=== PATIENT | male | born 1945 | race Caucasian/White ===

== ENCOUNTER 2020-10-08 14:49 | Inpatient (IN) | payer OTHER ==
[~2020-10-08] VITALS: Ht 175.3 cm; Wt 70.8 kg
--- NOTE | ~2020-10-08 | HC ---
[facility] [place] [address] CONSULTATION Name: HREB SORIANO Room #: 464-P [facility] IN M.R.#: [id number] Admission: 10/08/20 Attend Phys: Aaron Elkins MD Discharge: 10/11/20 Date of : 45 Report #: [id number] THIS REPORT FOR: cc: Eduardo Harry MD, Paul Piezas MD Althoff,Mic Sharpe MD ~ DOC #: [id number] Mic Manuel MD DATE OF SERVICE: 10/09/2020 CHIEF COMPLAINT: Diabetic foot ulceration. HISTORY OF PRESENT ILLNESS: This is a 75-year-old male patient who is admitted to the hospital with a history of diabetes mellitus and progressive infection involving his right foot. He had previously refused hospitalization at the recommendation of Dr. Seo in the wound clinic, but was feeling increasingly ill and decided to present. He had noticed some increased bleeding from the wound as well as just generalized fatigue and is here for further evaluation and treatment. The patient has had recurring issues and poor healing involving that foot. PAST MEDICAL HISTORY: Positive for history of anemia, type 2 diabetes mellitus, Charcot foot involving the right foot, coronary artery disease status post CABG, peripheral arterial disease, moderate protein calorie malnutrition. PAST SURGICAL HISTORY: He is status post left below-knee amputation. MEDICATIONS: Includes hydrocodone, ondansetron, Desyrel, Xanax, nitroglycerin, Lasix, alprazolam, metoprolol. ALLERGIES: No known drug allergies. SOCIAL HISTORY: Negative for alcohol or tobacco use. FAMILY HISTORY: Noncontributory. REVIEW OF SYSTEMS: CONSTITUTIONAL: The patient denies fever, chills or weight loss. NEUROLOGICAL: The patient denies focal weakness. Does have a peripheral neuropathy. EYES: The patient denies visual changes, redness or drainage. ENT: The patient denies earache, nasal drainage, sore throat. CARDIOVASCULAR: The patient denies chest pain, palpitations, diaphoresis. PULMONARY: No shortness of breath. GASTROINTESTINAL: No nausea, vomiting or diarrhea or abdominal pain. ORTHOPEDIC: The patient complains of some drainage and redness, some discomfort [facility] [address] [address] CONSULTATION Name: HERB SORIANO Room #: 464-P [facility] IN .R.#: [id number] Admission: 10/08/20 Attend Phys: Aaron Elkins MD Discharge: 10/11/20 Date of : 45 Report #: [id number] involving his right foot. Others systems in a 14-point review of systems are negative. PHYSICAL EXAMINATION: VITAL SIGNS: Include temperature 97.8, pulse 85, respiratory rate of 16, blood pressure 117/51. GENERAL: This is a chronically ill-appearing male patient, appears to be in mild discomfort. Head normocephalic. Nose and throat are clear. NECK: Supple. LUNGS: Clear. HEART: Regular, without murmur. ABDOMEN: Soft and bowel sounds present. EXTREMITIES: Demonstrate prior left below-knee amputation. He has diabetic ulcerations to the medial and plantar aspect of the right foot. There is moderate erythema and some tenderness. There is some depth to these wounds, they do probe close to bone, although I cannot directly see or palpate bone. NEUROLOGIC: The patient is alert, does move all 4 extremities. LABORATORY STUDIES Include sodium 139, potassium 3.5, chloride 104, CO2 of 25, BUN 40, creatinine 1.5, glucose 130. White blood cell count 6.6 with a hemoglobin of 9.0. CLINICAL IMPRESSION: 1. Diabetic type ulceration to the right medial foot. 2. Charcot deformity of the right foot. 3. History of left below-knee amputation. 4. Peripheral arterial disease. 5. Type 2 diabetes mellitus. 6. Diabetic peripheral neuropathy. 7. Severe protein calorie malnutrition, albumin 2.4. RECOMMENDATIONS: At this point in time, we are going to pack the distal ulcer of the right foot with Aquacel Ag and an Aquacel Ag to both the distal and superior wounds, cover with ABD, Kerlix, Willian. Change Wednesday, Wednesday and Wednesday. He will need postop shoe for ambulatory purposes and offload as much as possible, intravenous antibiotic therapy per ID. We will consult Dr. Baez from a podiatric perspective to see if any surgical intervention should be required. Arterial Doppler has shown no significant stenosis at present. Continue with other medical management for underlying diabetes and renal disease. I appreciate being asked to see the patient in consultation. MD ARY Ruiz/Velma [address] [address] CONSULTATION Name: HERB SORIANO Room #: 464-P [facility] IN M.R.#: [id number] Admission: 10/08/20 Attend Phys: Aaron Elkins MD Discharge: 10/11/20 Date of : 45 Report #: [id number] By: [id number] Mic Manuel MD /paulo
[2020-10-08 15:02] VITALS: BP 128/67
[2020-10-08 16:31] LABS: ABSOLUTE NEUTROPHILS 9.7 thou/uL (1.4-8.2); BASOPHILS 0.2 % (0.0-2.0); EOSINOPHILS 0.5 % (0.0-3.0); HEMATOCRIT 27.8 % (42.0-52.0); HEMOGLOBIN 9.5 gm/dL (14.0-18.0); LYMPHOCYTES 7.3 % (24.0-44.0); MCH 30.2 pg (26.0-34.0); MCHC 34.1 g/dL (28.0-37.0); MCV 88.6 fL (80.0-100.0); MONOCYTES 6.6 % (1.0-8.0); PLATELET COUNT 338 thou/uL (150-400); POLYS 85.4 % (36.0-66.0); RBC 3.14 mil/uL (4.50-6.00); RDW 14.2 % (10.5-14.5); WBC 11.4 thou/uL (4.0-11.0)
[2020-10-08 16:46] LABS: CALCIUM 8.8 mg/dL (8.5-10.1); CREATININE 1.5 mg/dL (0.7-1.3)
[2020-10-08 16:52] LABS: ALBUMIN 2.4 g/dL (3.4-5.0); TOTAL BILIRUBIN 0.5 mg/dL (0.2-1.0); TOTAL PROTEIN 6.7 g/dL (6.4-8.2)
[2020-10-08 18:29] LABS: URINE BILIRUBIN NEGATIVE (Negative); URINE BLOOD TRACE (Negative); URINE CLARITY CLEAR; URINE COLOR YELLOW; URINE GLUCOSE-RANDOM* NEGATIVE (Negative); URINE KETONES NEGATIVE (Negative); URINE LEUKOCYTES-REFLEX NEGATIVE (Negative); URINE NITRITE-REFLEX NEGATIVE (Negative); URINE PROTEIN (DIPSTICK) 2+ (Negative); URINE SPECIFIC GRAVITY 1.025 (1.005-1.035)
[2020-10-08 18:34] LABS: BACTERIA-REFLEX None Seen /HPF (None Seen); CRYSTALS None Seen /LPF (None Seen); FINE GRANULAR CASTS 0-3 Few /LPF (None Seen); SQUAMOUS None Seen /LPF (0-3); URINE RBC None Seen /HPF (NONE SEEN); URINE WBC-REFLEX None Seen /HPF (0-5)
[2020-10-08 19:37] VITALS: BP 116/48
[2020-10-08 19:59] VITALS: BP 116/64
[2020-10-08 20:10] VITALS: BP 144/56
[2020-10-08 21:24] VITALS: BP 107/60
[2020-10-08] MEDS ORDERED: NORCO 10-325 T1 EACH PO (23:00)
[2020-10-08] MEDS ORDERED: ONDANSETRON ODT8 MG PO (23:03)
[2020-10-08] MEDS ORDERED: TRAZODONE HCL50 MG PO (23:04)
[2020-10-08] MEDS ORDERED: XANAX 0.5 MG0.5 M1 PO (23:06)
--- NOTE | 2020-10-09 01:13 | NUR ---
Pt. admission assessment and history is completed. He refused to have this nurse assess and take pictures of his right foot wound. Po pain meds given (see emar) with relief noted. Assisted up to the bathroom with walker. Bed alarm is on.
[2020-10-09 05:35] LABS: BASOPHILS 0.4 % (0.0-2.0); EOSINOPHILS 3.7 % (0.0-3.0); HEMATOCRIT 26.3 % (42.0-52.0); LYMPHOCYTES 13.5 % (24.0-44.0); MCH 30.7 pg (26.0-34.0); MCHC 34.1 g/dL (28.0-37.0); MCV 89.8 fL (80.0-100.0); MONOCYTES 7.4 % (1.0-8.0); PLATELET COUNT 280 thou/uL (150-400); RBC 2.93 mil/uL (4.50-6.00); RDW 14.3 % (10.5-14.5); WBC 6.6 thou/uL (4.0-11.0)
[2020-10-09 05:59] LABS: CALCIUM 8.4 mg/dL (8.5-10.1); CREATININE 1.5 mg/dL (0.7-1.3); MAGNESIUM 1.6 mg/dL (1.8-2.4); POTASSIUM 3.5 mmol/L (3.5-5.1)
[2020-10-09 07:30] VITALS: BP 113/62
--- NOTE | 2020-10-09 08:12 | NUR ---
Pt. admitted to the unit from the emergency room accompanied by staff. He is alert and oriented. He was oriented to room and staff. Bed alarm is on.
[2020-10-09 08:48] LABS: % SATURATION 14 % (20-39); IRON 16 ug/dL (65-175); TIBC 112 ug/dL (250-450)
[2020-10-09] MEDS ORDERED: NITROSTAT0.4 MG SUBLING (10:25)
[2020-10-09] MEDS ORDERED: FUROSEMIDE 20 M20 M1 PO (10:25)
[2020-10-09] MEDS ORDERED: ALPRAZOLAM 0.50.5 M1 PO (10:26)
--- NOTE | 2020-10-09 12:58 | NUR ---
Assess due to RD consult. Pt admit with right infected foot wound, nonhealing, ulcerated. Hx DM, colon cancer, PVD/PAD, charcot foot. A1C pending, current BG 103. Physician has ordered regular diet. Pt likes to drink glucerna shake every morning, states appetite is good. Reports usual wt 175 lb and no wt loss, however bedscale showing 156 lb? Will order supplement, otherwise low nutrition risk
[2020-10-09] MEDS ORDERED: METOPROLOL SUCC50 MG PO (13:49)
[2020-10-09 15:16] VITALS: BP 117/51
[2020-10-09 20:09] VITALS: BP 119/52
[2020-10-10 00:06] LABS: GLYCOHEMOGLOBIN (HGB A1C) 6.6 % (4.8-5.6)
--- NOTE | 2020-10-10 04:35 | NUR ---
PT IS A/O X4 AND IS UP SBA WITH A WALKER AND GB TO THE BR. C/O PAIN AND ANXIETY. PRN PAIN AND ANXIETY MEDICATION GIVEN DIRECTED. FALL PRECAUTIONS IMPLEMENTED. CALL LIGHT IS WITHIN REACH. DRSG TO RIGHT FOOT IS C/D/I. WILL CONTINUE TO MONITOR.
[2020-10-10 05:34] LABS: HEMATOCRIT 28.9 % (42.0-52.0); HEMOGLOBIN 9.7 gm/dL (14.0-18.0); MCH 30.4 pg (26.0-34.0); MCHC 33.6 g/dL (28.0-37.0); MCV 90.7 fL (80.0-100.0); RBC 3.19 mil/uL (4.50-6.00); RDW 14.4 % (10.5-14.5); WBC 6.1 thou/uL (4.0-11.0)
[2020-10-10 06:25] LABS: CALCIUM 8.8 mg/dL (8.5-10.1); CREATININE 1.3 mg/dL (0.7-1.3); MAGNESIUM 1.5 mg/dL (1.8-2.4); POTASSIUM 4.3 mmol/L (3.5-5.1)
--- NOTE | 2020-10-10 06:56 | HC ---
[facility] [place] [address] CONSULTATION Name: HERB SORIANO Room #: 464-P ADM IN M.R.#: [id number] Admission: 10/08/20 Attend Phys: Aaron Elkins MD Discharge: Date of : 45 Report #: [id number] THIS REPORT FOR: cc: Eduardo Harry MD, Paul Piezas MD Barry,Aníbal Kidd MD ~ DOC #: [id number] Aníbal Rosenbaum MD DATE OF SERVICE: 10/09/2020 INFECTIOUS DISEASE CONSULTATION ATTENDING PHYSICIAN: Dr. Elkins. REASON FOR EVALUATION: Deep seated infection involving his left foot. HISTORY OF PRESENT ILLNESS: Chart was reviewed. The patient examined. This is a 75-year-old gentleman with known significant vasculopathy, previous issues related to left BKA, has had a chronic ulceration, has been followed by the wound care center. Apparently, he was evaluated as recently as earlier this week. There is concern about infection. He was empirically started on combination therapy with penicillin and doxycycline. It did progress and he was subsequently recommended for admission, noted increasing inflammatory signs locally, it is not clear that he had systemic illness, wanted to catch it early, did undergo imaging. Plain film showed some gas in the medial aspect, otherwise swelling consistent with cellulitis. He did have elevated inflammatory markers, sed rate of 104. CRP of 240.7. Blood cultures were collected at time of admission are sterile thus far. Wound culture is pending. Gram stain did show Gram-positive cocci, moderate white cells. Arterial Doppler confirmed arterial occlusive disease. Empirically started on vancomycin and Zosyn. He is not overtly toxic. He notes he has feeling in his feet. Overall, he is significantly improved he states since admission. ALLERGIES: None known. MEDICATIONS: Include furosemide, trazodone, hydrocodone, metoprolol, lactobacillus, insulin sliding scale, alprazolam, Zosyn, vancomycin, p.r.n. analgesics and antiemetics. PAST MEDICAL/SURGICAL HISTORY: As noted above, chronic vasculopathy, left BKA, history of diabetes, hyperlipidemia, history of colon cancer, previous aortocoronary bypass grafting. SOCIAL HISTORY: He is . No ethanol. Nonsmoker. No illicit drug use. FAMILY HISTORY: Noncontributory. [address] [address] CONSULTATION Name: HERB SORIANO Room #: 464-[facility] IN M.R.#: [id number] Admission: 10/08/20 Attend Phys: Aaron Elkins MD Discharge: Date of : 45 Report #: [id number] REVIEW OF SYSTEMS: Otherwise, unremarkable. A 10-point review of systems: Denies any pulmonary or gastrointestinal related complaints. PHYSICAL EXAMINATION: GENERAL: Appears somewhat chronically ill, undernourished, pleasant, cooperative, mild distress. VITAL SIGNS: Temperature 97.2, pulse 62, respirations 18, blood pressure is 113/62. SKIN: Warm. HEENT: Normocephalic. Extraocular muscles intact. NECK: Supple. LUNGS: Diminished breath sounds, otherwise clear. HEART: Regular. I do not appreciate a murmur. ABDOMEN: Soft, nontender, nondistended. EXTREMITIES: He has a dressing over the distal right lower extremity. Awaiting the wound care team. GENITOURINARY AND RECTAL: Deferred. LABORATORY DATA: Arterial Doppler of the lower extremity showed monophasic inflow, superficial artery was occluded and ____ bypass graft; cultures described above in progress. Gram stain with Gram-positive cocci. Ferritin 304. Iron studies - level of 16, saturation is 14%. Blood cultures sterile thus far. Electrolytes: Sodium 139, potassium 3 5, chloride 104, bicarbonate 25, anion gap of 10, BUN and creatinine 40 and 1.5. CBC: White count of 6.6, H and H of 9.0 and 26.3, platelets of 280. CRP of 240.7. Urinalysis unremarkable. TSH 0.422. Sed rate of 104. Liver function tests unremarkable. Albumin of 2.4, total protein of 6.7. Initial CBC: White count 11.4, H and H of 9.5 and 27.8, platelets 338. ASSESSMENT AND PLAN: Suspected deep infection involving his right foot. The patient is vascular compromised. Gram stain suggests Gram-positive, would presume a Staph or Strep etiology. We will continue combination therapy at this point, try to pare down as available. Continue wound care as prescribed. We will add incentive spirometry. We will defer, they think he needs additional debridement including operative. At this point he is not overtly toxic. Lengthy discussion held with the patient. MD MARIA DE JESUS Persaud/JERILYN/YASMINE [address] [address] CONSULTATION Name: SERENITYRameshHERB Room #: 464-P ADM IN M.R.#: [id number] Admission: 10/08/20 Attend Phys: Aaron Elkins MD Discharge: Date of : 45 Report #: [id number] <ELECTRONICALLY SIGNED> By: Aníbal Rosenbaum MD 10/10/20 [id number] Aníbal Rosenbaum MD /nt
--- NOTE | 2020-10-10 13:11 | NUR ---
ORDERS FOR EVAL AND TREAT. SPOKE WITH Pt WHO STATES HE IS HAVING NO DIFFICULTY WITH MOBILITY AND O.T. SIGNED OFF ON HIM. STATES HE HAS BEEN UP WALKING WITH NURSING AND FEELS SAFE TO RETURN HOME HOPEFULLY TOMORROW. Pt DECLINING A FORMAL P.T. EVAL BUT APPEARS SAFE FOR HOME WHEN MEDICALLY CLEAR
--- NOTE | 2020-10-10 13:34 | NUR ---
10/09/20 ASSUMED CARE OF PATIENT AT SHIFT CHANGE. ASSESSMENT CHARTED. MEDICATIONS ADMINISTERED PER EMAR. VSS. PATIENT IS A&OX4 AND MAKES NEEDS KNOWN. PATIENTS MED REC WAS NOT COMPLETE; PATIENT PHARMACY WAS CALLED AND FAXED OVER CURRENT MEDICATIONS; PROVIDER WAS CALLED AND SOME MEDS WERE RESTARTED. PATIENT IS UP X1 W WALKER TO BATHROOM. WOUND CARE WAS DONE THIS DAY; PICTURES TAKEN & DIAGNOSTICS WERE RAN. PATIENT CALLS OFTEN & IS VOICING FRUSTRATED WITH "THE LACK OF CARE HE IS NOT GETTING". ENDORSED TO NOC. RN. 10/10/20 ASSUMED CARE OF PATIENT AT SHIFT CHANGE. ASSESSMENT CHARTED. MEDICATIONS ADMINISTERED PER EMAR. VSS. PATIENT REMAINS A&OX4 AND MAKES NEEDS KNOWN. PATIENT WORKED WITH PT/OT THIS DAY AND DID VERY WELL. PATIENT HAS NEW IV ACCESS ON R FA, INFUSING ABX. PATIENT VOICING "NEEDING READJUSTMENT ON HIS FOOT" STATING "IT'S TOO TIGHT AND NOW I'M SCARED TO TO WALK ON IT". WOUNDCARE TEAM WAS NOTIFIED AND WILL ROUND ON THE PATIENT. HOSPITALIST WAS PAGED X4 TO RESTART ORAL ANTIDIABETICS; STILL AWAITING RESPONSE. PATIENT VOICING DESIRE TO GO HOME TOMORROW. DR. NOVOA ROUNDED ON PATIENT; SEE NOTES. PATIENT VOIDED MANY TIMES THIS DAY AND HAD 2 BM'S. PATIENT IS TOLERATING DIET WELL; VOICES NAUSEA AT TIMES EXACERBATED BY PAIN. PRN PAIN ANALGESIC ADMINISTERED NEEDED; Q4 HOURS. PATIENT OTHERWISE VOICING NO FURTHER NEEDS. WILL CONTINUE TO MONITOR AND FOLLOW PLAN OF CARE
[2020-10-10] MEDS ORDERED: GLIMEPIRIDE4 MG PO (14:43)
[2020-10-10] MEDS ORDERED: METFORMIN HCL1000 MG PO (14:43)
[2020-10-10 16:40] VITALS: BP 119/52
--- NOTE | 2020-10-10 16:48 | NUR ---
PT ADMITTED RELATED TO INFECTED RIGHT FOOT. CM REVIEWED CHART AND SPOKE WITH CARE TEAM. CM MET WITH PT AT BEDSIDE THIS DAY. PT APPEARED TO BE A&O X4. CM ROLE INTRODUCED. PT INDICATED HE LIVES IN AN APARTMENT WITH HIS SPOUSE HE INDICATED A COUPLE STEPS TO ENTER AND NO STEPS INSIDE. PT INDICATED HE HAS A FWW AND A PROSTHESIS FOR HOME USE. PT INDICATED HE HAD BEEN ON [facility] WITH [facility] AND DOES OP WC AT THE CLINIC. PT IS ON IV VANC AND ZOSYN. PT INDICATING THAT PT IS TO DC TOMORROW AROUND 12:00. CM TO FOLLOW INDICATED WITH DC PLANNING.
[2020-10-10 20:00] VITALS: BP 122/61
[2020-10-11 05:59] LABS: HEMATOCRIT 28.7 % (42.0-52.0); HEMOGLOBIN 9.6 gm/dL (14.0-18.0); MCH 30.3 pg (26.0-34.0); MCHC 33.5 g/dL (28.0-37.0); MCV 90.2 fL (80.0-100.0); RBC 3.19 mil/uL (4.50-6.00); RDW 14.5 % (10.5-14.5); WBC 7.4 thou/uL (4.0-11.0)
--- NOTE | 2020-10-11 06:51 | NUR ---
Pt alert and oriented. VSS on RA. Meds given per emar. Pt slept well this shift. RFA IV. Pt anticipating dc to home today. Nursing to continue to monitor.
[2020-10-11 09:51] VITALS: BP 122/61
[2020-10-11 10:06] VITALS: BP 117/47
[2020-10-11] MEDS ORDERED: RIFAMPIN 300 M300 MG PO (11:03)
[2020-10-11] MEDS ORDERED: BACTRIM DS TAB1 EACH PO (11:03)
--- NOTE | 2020-10-11 13:34 | NUR ---
Received awake on bed. Due medication given as prescribed; able to swallow meds w/o difficulty. On MS, not on telemetry; no complains and signs of chest pain, crushing sensation and heaviness. On room air. On regular diet- tolerating well; no nausea, no vomiting and no abdominal pain noted. On blood sugar monitoring, taken and recorded accordingly; pt refusing to have insulin. Continent of bowel and bladder, using urinal and able to go to the toilet with standby assist. With prev L BKA with prosthesis at bedside. With SL at R FA. Dressing at R foot- C/D/I- pt refusing to have dressing changed not photo to be taken prior to discharge despite multiple explanations. Possible discharge today, pt keen to go home; pt informed that doctor's orders needs to be obtained. Falls bundle in place. Complained of pain, due PRN pain meds given as prescribed. Pt seen and examined by Dr Rosenbaum- PO antibiotics prescribed- Dr Sherman informed re: Dr Rosenbaum's recommendations. Discharge orders made. Discharge instructions, follow up schedule given and instructed. Discharge forms signed. Pt requested to have prescriptions called to his pharmacy- Talked to pharmacist Rika and informed him re: prescriptions; pt updated.
== END 2020-10-11 12:00 | disposition home health service (06) | DRG 637 ==
LOC: ER 14:49 → 4W 17:36 → EROBS 17:36 → 4W 20:30
PROVIDERS: Hospitalist; Nurse Practitioner; ADMIT Internal Medicine; ATTEND Internal Medicine
DX: E11.621 Type 2 diabetes mellitus with foot ulcer (principal); E43 Unspecified severe protein-calorie malnutrition; L03.115 Cellulitis of right lower limb; M86.8X7 Other osteomyelitis, ankle and foot; N17.9 Acute kidney failure, unspecified; M54.9 Dorsalgia, unspecified; G89.29 Other chronic pain; E78.5 Hyperlipidemia, unspecified; I25.10 Atherosclerotic heart disease of native coronary artery without angina pectoris; D64.9 Anemia, unspecified; E11.65 Type 2 diabetes mellitus with hyperglycemia; D50.9 Iron deficiency anemia, unspecified; F41.1 Generalized anxiety disorder; E11.610 Type 2 diabetes mellitus with diabetic neuropathic arthropathy; E11.51 Type 2 diabetes mellitus with diabetic peripheral angiopathy without gangrene; E11.42 Type 2 diabetes mellitus with diabetic polyneuropathy; R53.81 Other malaise; E11.69 Type 2 diabetes mellitus with other specified complication; Z89.512 Acquired absence of left leg below knee; Z85.038 Personal history of other malignant neoplasm of large intestine; Z92.21 Personal history of antineoplastic chemotherapy; Z95.1 Presence of aortocoronary bypass graft; Z68.23 Body mass index [BMI] 23.0-23.9, adult
CPT/HCPCS: 10045

== ENCOUNTER → 2020-11-13 | Outpatient (CLI) | payer OTHER ==
[~2020-11-13] MED LIST: ALPRAZOLAM 0.50.5 M1 PO; BACTRIM DS TAB1 EACH PO; FUROSEMIDE 20 M20 M1 PO; GLIMEPIRIDE4 MG PO; METFORMIN HCL1000 MG PO; METOPROLOL SUCC50 MG PO; NITROSTAT0.4 MG SUBLING; NORCO 10-325 T1 EACH PO; ONDANSETRON ODT8 MG PO; RIFAMPIN 300 M300 MG PO; TRAZODONE HCL50 MG PO; XANAX 0.5 MG0.5 M1 PO
== END ==
LOC: HYPER 09:10
PROVIDERS: ATTEND Emergency Medicine
DX: E11.621 Type 2 diabetes mellitus with foot ulcer (principal); L97.512 Non-pressure chronic ulcer of other part of right foot with fat layer exposed; L03.115 Cellulitis of right lower limb; L84 Corns and callosities; E11.42 Type 2 diabetes mellitus with diabetic polyneuropathy; B35.1 Tinea unguium; E11.610 Type 2 diabetes mellitus with diabetic neuropathic arthropathy; E11.69 Type 2 diabetes mellitus with other specified complication; M86.9 Osteomyelitis, unspecified; E11.40 Type 2 diabetes mellitus with diabetic neuropathy, unspecified; I25.2 Old myocardial infarction; Z95.1 Presence of aortocoronary bypass graft; Z87.891 Personal history of nicotine dependence; Z79.84 Long term (current) use of oral hypoglycemic drugs; Z89.512 Acquired absence of left leg below knee

== ENCOUNTER → 2020-12-10 | Outpatient (CLI) | payer OTHER | LOC: HYPER 08:47 | PROVIDERS: ATTEND Emergency Medicine | DX: E11.621 Type 2 diabetes mellitus with foot ulcer (principal); L97.512 Non-pressure chronic ulcer of other part of right foot with fat layer exposed; L03.115 Cellulitis of right lower limb; L84 Corns and callosities; E11.42 Type 2 diabetes mellitus with diabetic polyneuropathy; B35.1 Tinea unguium; E11.610 Type 2 diabetes mellitus with diabetic neuropathic arthropathy; E11.69 Type 2 diabetes mellitus with other specified complication; M86.9 Osteomyelitis, unspecified; E11.40 Type 2 diabetes mellitus with diabetic neuropathy, unspecified; I25.2 Old myocardial infarction; Z95.1 Presence of aortocoronary bypass graft; Z87.891 Personal history of nicotine dependence; Z79.84 Long term (current) use of oral hypoglycemic drugs; Z89.512 Acquired absence of left leg below knee ==